=== PATIENT | male | born 1970 ===

== ENCOUNTER 2021-05-09 16:38 | Observation (INO) ==
[2021-05-09 17:06] LABS: Basophils % 0.5 % (0.0-0.8); Eosinophils # 0.1 10*3/uL (0.0-0.87); Eosinophils % 0.8 % (0.00-10.9); Hematocrit 47.3 VOL% (42.0-52.0); Hemoglobin 15.7 GM/DL (14.0-18.0); Immature Granulocytes % 0.9 %; Immature Granulocytes Absolute 0.08 #; Lymphocytes # 2.1 10*3/uL (1.4-4.0); Lymphocytes % 24.4 % (21.2-54.2); Mean Corpuscular HGB Conc 33.2 GM/DL (32-36); Mean Corpuscular Volume 89.4 FL (87-102); Mean Platelet Volume 9.3 FL (9.6-12.0); Monocytes % 11.5 % (1.7-12.7); Neutrophils % 61.9 % (38.7-73.9); Platelet Count 285 T/CUMM (130-400); Red Blood Count 5.29 MC/CUMM (3.8-5.5); Red Cell Distribution Width 13.3 % (9.3-17.3); White Blood Count 8.7 T/CUMM (4-12)
[2021-05-09] MEDS ORDERED: NITROGLYCERIN SL 0.4 MG TABLET SL PRN (17:18)
[2021-05-09] MEDS ORDERED: ASPIRIN 325 MG TABLET PO STA (17:18)
[2021-05-09 17:32] LABS: Albumin 3.8 G/DL (3.4-5.0); Bilirubin,Total 0.5 MG/DL (0.20-1.00); Calcium 8.6 MG/DL (8.5-10.1); Osmolality,Calculated 279.5 MOS/KG (273-304); Total Protein 7.5 G/DL (6.4-8.2)
[2021-05-09] MEDS ORDERED: LABETALOL 20 MG/4 ML SYRINGE IV STA (17:53)
[2021-05-09] MEDS ORDERED: ACETAMINOPHEN 325 MG TABLET PO PRN (19:47)
[2021-05-09] MEDS ORDERED: ONDANSETRON 4 MG/2 ML VIAL IV PRN (19:47)
[2021-05-09] MEDS ORDERED: GLUCAGON 1 MG VIAL IM PRN (19:47)
[2021-05-09] MEDS ORDERED: DEXTROSE 50% 25 GM/50 ML VIAL IV PRN (19:47)
[2021-05-09] MEDS ORDERED: ENOXAPARIN 40 MG/0.4 ML SYRINGE SUBCUT SCH (20:00)
[2021-05-09] MEDS: LACTATED RINGERS 1,000 ML IV SCH (22:24)
[2021-05-09] MEDS: carvediloL 3.125 MG TABLET PO SCH (22:30)
[2021-05-10 05:47] LABS: Basophils % 0.5 % (0.0-0.8); Eosinophils % 0.2 % (0.00-10.9); Hematocrit 45.3 VOL% (42.0-52.0); Hemoglobin 14.8 GM/DL (14.0-18.0); Immature Granulocytes % 0.7 %; Immature Granulocytes Absolute 0.06 #; Lymphocytes # 2.3 10*3/uL (1.4-4.0); Lymphocytes % 26.7 % (21.2-54.2); Mean Corpuscular HGB Conc 32.7 GM/DL (32-36); Mean Corpuscular Volume 90.8 FL (87-102); Mean Platelet Volume 9.3 FL (9.6-12.0); Neutrophils % 63.9 % (38.7-73.9); Platelet Count 253 T/CUMM (130-400); Red Blood Count 4.99 MC/CUMM (3.8-5.5); Red Cell Distribution Width 13.4 % (9.3-17.3); White Blood Count 8.5 T/CUMM (4-12)
[2021-05-10] MEDS: LACTATED RINGERS 1,000 ML IV SCH (08:25)
[2021-05-10] MEDS ORDERED: ASPIRIN EC 325 MG TABLET PO SCH (09:00)
[2021-05-10] MEDS ORDERED: PANTOPRAZOLE 40 MG TABLET PO SCH (09:00)
[2021-05-10] MEDS ORDERED: lisinopriL 10 MG TABLET PO SCH (09:00)
[2021-05-10] MEDS: carvediloL 3.125 MG TABLET PO SCH (09:17)
[2021-05-10 09:30] LABS: Albumin 3.2 G/DL (3.4-5.0); Bilirubin,Total 0.9 MG/DL (0.20-1.00); Calcium 8.5 MG/DL (8.5-10.1); Osmolality,Calculated 277.7 MOS/KG (273-304); Potassium 3.7 MMOL/L (3.5-5.1)
[2021-05-10 09:35] LABS: Risk Ratio 6.13
[2021-05-10] MEDS ORDERED: ROSUVASTATIN 20 MG TABLET PO SCH (10:30)
[2021-05-10 12:04] VITALS: BP 170/102
[2021-05-11] MEDS ORDERED: ASPIRIN EC 81 MG TABLET PO SCH (09:00)
== END 2021-05-10 13:34 | disposition home or self-care (01) ==
LOC: EDSEX → N.ED 16:38 → N.EDINP 16:38 → N.TELES 22:03
PROVIDERS: ADMIT Internal Medicine; ATTEND Internal Medicine